=== PATIENT | male | born 1950 | race Caucasian/White ===

== ENCOUNTER → 2018-03-15 07:45 | Outpatient (CLI) | payer MEDICARE, OTHER, SELFPAY ==
[2018-03-15 09:02] LABS: Add Manual Diff / Slide Review NO; Basophils Percent Auto 0.3 % (0-2); Eosinophils Percent Auto 2.5 % (2-4); Hematocrit 45.2 % (41-53); Hemoglobin 15.5 g/dL (13.5-17.5); Lymphocytes Percent Auto 26.4 % (25-40); Mean Corpuscular HGB Conc 34.4 % (30-36); Mean Corpuscular Hemoglobin 30.5 PG (26-34); Mean Corpuscular Volume 88.8 fL (80-100); Monocytes Percent Auto 9.1 % (3-14); Neutrophils Absolute Auto 4200 /uL (3000-5900); Neutrophils Percent Auto 61.7 % (50-75); Platelet Count 160 X10^3/uL (150-400); Red Blood Cell Count 5.09 X10^6/uL (4.5-5.9); Red Cell Distribution Width 13.4 % (11.6-14.8); White Blood Cell Count 6.7 X10^3/uL (4.5-11.0)
[2018-03-15 09:14] LABS: Alanine Aminotransferase 23 IU/L (21-72); Albumin Globulin Ratio 1.3 (1.0-2.8); Alkaline Phosphatase 60 U/L (38-126); Aspartate Aminotransferase 19 IU/L (17-59); Bilirubin Total 0.9 mg/dL (0.2-1.3); Calcium 8.7 mg/dL (8.4-10.2); Cholesterol 191 mg/dL (140-199); Estimated Glomerular Filt Rate > 60.0 mL/min (>60); Glucose 102 mg/dL (80-110); HDL Cholesterol 46 mg/dL (40-60); HEMOLYSIS < 15 (0-50); LDL Cholesterol Calculated 124 mg/dL (<100); Potassium 4.3 mmol/L (3.4-5.1); Sodium 141 mmol/L (137-145); Triglycerides 104 mg/dL (35-150)
[2018-03-15 09:40] LABS: Thyroid Stimulating Hormone 0.99 uIU/mL (0.47-4.68)
== END ==
PROVIDERS: PCP Family Medicine; Visit Provider Urology
DX: E78.5 Hyperlipidemia, unspecified (principal); C61 Malignant neoplasm of prostate
CPT/HCPCS: 36415; 80053; 80061; 84153; 84443; 85025; G0103

== ENCOUNTER → 2018-04-09 07:48 | Outpatient (CLI) | payer MEDICARE, OTHER, SELFPAY | PROVIDERS: PCP Family Medicine; Visit Provider Urology | DX: C61 Malignant neoplasm of prostate (principal) | CPT/HCPCS: 36415; 84153 ==

== ENCOUNTER → 2019-02-12 12:40 | Outpatient (CLI) | payer MEDICARE, OTHER, SELFPAY | PROVIDERS: PCP Family Medicine; Visit Provider Radiology Radiation Oncology | DX: C61 Malignant neoplasm of prostate (principal) | CPT/HCPCS: 36415; 84153 ==

== ENCOUNTER → 2019-02-19 13:21 | Outpatient (CLI) | payer MEDICARE, OTHER, SELFPAY ==
[2019-02-19 14:41] LABS: Prostate Specific Antigen 13.6 ng/mL (0.10-4.00)
== END ==
PROVIDERS: Family Provider Family Medicine; PCP Family Medicine; Visit Provider Radiology Radiation Oncology
DX: C61 Malignant neoplasm of prostate (principal)
CPT/HCPCS: 36415; 84153

== ENCOUNTER → 2019-07-11 07:42 | Outpatient (CLI) | payer MEDICARE, OTHER, SELFPAY ==
[2019-07-11 08:10] LABS: Add Manual Diff / Slide Review NO; Basophils Absolute Auto 0 /uL (0-100); Basophils Percent Auto 0.4 % (0-2); Eosinophils Absolute Auto 200 /uL (0-450); Eosinophils Percent Auto 3.9 % (2-4); Hematocrit 43.9 % (41-53); Hemoglobin 14.7 g/dL (13.5-17.5); Lymphocytes Absolute Auto 1400 /uL (1100-4500); Lymphocytes Percent Auto 25.7 % (25-40); Mean Corpuscular HGB Conc 33.6 % (30-36); Mean Corpuscular Hemoglobin 30.8 PG (26-34); Mean Corpuscular Volume 91.5 fL (80-100); Monocytes Absolute Auto 600 /uL (0-900); Monocytes Percent Auto 10.6 % (3-14); Neutrophils Absolute Auto 3100 /uL (1500-7000); Neutrophils Percent Auto 59.4 % (50-75); Platelet Count 168 X10^3/uL (150-400); Red Blood Cell Count 4.79 X10^6/uL (4.5-5.9); Red Cell Distribution Width 13.2 % (11.6-14.8); White Blood Cell Count 5.3 X10^3/uL (4.5-11.0)
[2019-07-11 09:23] LABS: Alanine Aminotransferase 23 IU/L (21-72); Albumin Globulin Ratio 1.5 (1.0-2.8); Alkaline Phosphatase 64 U/L (38-126); Aspartate Aminotransferase 22 IU/L (17-59); BUN Creatinine Ratio 17.3 (6-22); Bilirubin Total 0.8 mg/dL (0.2-1.3); Blood Urea Nitrogen 19 mg/dL (9-20); Calcium 9.1 mg/dL (8.4-10.2); Carbon Dioxide 28 mmol/L (22-32); Chloride 104 mmol/L (98-107); Cholesterol 177 mg/dL (140-199); Estimated Glomerular Filt Rate > 60.0 mL/min (>60); Globulin 2.6 g/dL (1.7-4.1); Glucose 101 mg/dL (80-110); HDL Cholesterol 39 mg/dL (40-60); HEMOLYSIS < 15 (0-50); LDL Cholesterol Calculated 117 mg/dL (<100); Potassium 4.4 mmol/L (3.4-5.1); Sodium 140 mmol/L (137-145); Total Protein 6.6 g/dL (6.3-8.2); Triglycerides 104 mg/dL (35-150)
[2019-07-11 09:38] LABS: Vitamin D 25 Hydroxy (D3) 33.6 ng/mL (30.0-100.0)
[2019-07-11 09:53] LABS: Prostate Specific Antigen Scrn 3.48 ng/mL (0.1-4.0); Thyroid Stimulating Hormone 1.16 uIU/mL (0.47-4.68)
== END ==
PROVIDERS: PCP Family Medicine; Visit Provider Family Medicine
DX: Z00.00 Encounter for general adult medical examination without abnormal findings (principal); I10 Essential (primary) hypertension; Z12.5 Encounter for screening for malignant neoplasm of prostate; Z13.21 Encounter for screening for nutritional disorder; Z85.46 Personal history of malignant neoplasm of prostate
CPT/HCPCS: 36415; 80053; 80061; 82306; 84443; 85025; G0103

== ENCOUNTER → 2019-08-19 12:33 | Outpatient (CLI) | payer MEDICARE, OTHER, SELFPAY ==
[2019-08-19 14:20] LABS: Prostate Specific Antigen 2.58 ng/mL (0.10-4.00)
== END ==
PROVIDERS: PCP Family Medicine; Visit Provider Radiology Radiation Oncology
DX: Z85.46 Personal history of malignant neoplasm of prostate (principal)
CPT/HCPCS: 36415; 84153

== ENCOUNTER → 2019-09-30 15:27 | Outpatient (CLI) | payer MEDICARE, OTHER, SELFPAY ==
--- NOTE | 2019-09-30 15:29 | DI.RAD.S_ITS ---
PROCEDURE: XR SHOULDER RT MIN 2V INDICATIONS: pain TECHNIQUE: 3 views of the shoulder were acquired. COMPARISON: None. FINDINGS: Bones: No fractures or dislocations. No suspicious bony lesions. Visualized ribs appear intact. Soft tissues: No suspicious soft tissue calcifications. IMPRESSION: Moderate osteoarthritis right a.c. joint. Dictated by: Aníbal Alicia M.D. on 09/30/2019 at 15:52 Approved by: Aníbal Alicia M.D. on 09/30/2019 at 15:53
== END ==
PROVIDERS: PCP Family Medicine; Visit Provider Family Medicine
DX: M25.511 Pain in right shoulder (principal); M19.011 Primary osteoarthritis, right shoulder
CPT/HCPCS: 73030

== ENCOUNTER 2019-11-14 09:58 | Day surgery (SDC) | payer MEDICARE, OTHER, SELFPAY ==
--- NOTE | 2019-11-14 | PATH_ITS ---
[facility] Accession Number: [id number] . 01 Material submitted: . rectum - RECTAL POLYP AT 18 CM . 02 Diagnosis: Rectal Polyp at 18 cm: Hyperplastic polyp. MRV 11/17/2019 0950 Local . 02 Electronically signed: . Luann Anderson MD, Pathologist NPI- [id number] . 01 Gross description: . RECTAL POLYP AT 18 CM: Received in formalin is 1 fragment(s) of linton, soft tissue measuring 0.1 x 0.1 x 0.1 cm submitted entirely in 1 cassette(s) /[facility] 11/14/20192048 Local . 02 Pathologist provided ICD-10: Z12.11, K63.5 . 02 CPT . 668790 Performed at: 01 [facility] [address] [facility], [place], [place] [id number] MD Juan Pablo Horowitz MD Phone: [phone] Performed at: 02 [facility] [address] [place], [place] [id number] MD Doris Bhat MD Phone: [phone]
[2019-11-14] MEDS: SODIUM CHLORIDE 0.9% 1,000 ML 200 ML IV (10:14)
[2019-11-14 10:15] VITALS: BP 106/85; PULSE 108; RESP 16; TEMP 36.7; O2SAT 96; BMI 27.3
--- NOTE | 2019-11-14 10:56 | PM.HP.1 ---
History of Present Illness History of Present Illness Date Patient Seen: 11/14/19 Time Patient Seen: 10:56 Chief complaint: [id number] Narrative: This is a 69-year-old man with recent diagnosis of prostate cancer, who is 7 years out from his last screening colonoscopy. He had polyps found on a colonoscopy, he was recommended to have a follow-up colonoscopy in 5 years. He denies any hematochezia, melena, unexplained abdominal pain, unexplained weight loss. He has no family history of colon polyps or colon cancers. He says he feels well and in good health. ROS: Thirteen system review is otherwise negative other than as mentioned below and in HPI. PE: GENERAL: Well groomed and cooperative. Appears stated age. Answers questions promptly and appropriately. Vital signs noted. HENT: Normocephalic, atraumatic. Hearing intact. Oral mucosa is pink and moist. EYES: Conjunctiva pink, sclera white, no periorbital swelling. CARDIOVASCULAR: Regular rate. No pedal edema. RESPIRATORY: Non-tachypneic, breathing comfortably on room air. GASTROINTESTINAL: Abdomen soft and non-distended GENITALURINARY: No flank tenderness. MUSCULOSKELETAL: Equal tone and mass bilaterally. SKIN: Warm, dry, soft, appropriate color for ethnicity. No other lesions, rashes, or wounds. NEURO: Alert and Oriented X 3. No gross sensory deficits, or cognitive issues. PSYCH: Appropriate affect and mood. Patient History Medical History Chicken pox (Resolved ~1956) Surgical History Anesthesia (Resolved) Status post hernia repair (~1968) Surgical procedure planned (Resolved ~1989) Family & Social History Family History Brother Age: 69 Leukemia Father Mesothelioma Social History: household members spouse Tobacco & Substance use: Smoking Status Never smoker alcohol intake current alcohol intake frequency a few times a week Substance Use Type does not use Meds Home Medications and Allergies Home Medications Medication Instructions Recorded Confirmed Type Diphenhydramine Hydrochloride 1 cap PO PRN #0 07/17/12 11/14/19 History (BENADRYL) aspirin 81 mg PO QDAY #0 07/09/13 11/14/19 History epinephrine 0.3 mg IM SEE INSTRUCTIONS #1 kit 02/27/17 11/14/19 Rx lisinopril 10 mg tablet 10 mg PO DAILY #90 tab 07/17/19 11/14/19 Rx lovastatin 40 mg tablet 40 mg PO HS #90 tab 07/17/19 11/14/19 Rx albuterol sulfate 90 mcg/actuation 2 puff INHALATION Q4HP PRN #2 each 09/01/19 11/14/19 Rx aerosol inhaler Allergies Allergy/AdvReac Type Severity Reaction Status Date / Time erythromycin base Allergy Mild Verified 11/14/19 10:26 Exam Vital Signs (past 8 hours): - 11/14/19 10:15 Temperature 98.0 F Pulse Rate 108 H Respiratory Rate 16 Blood Pressure 106/85 Pulse Oximetry 96 Oxygen Delivery Method Room Air Assessment & Plan Assessment and plan (1) Personal history of colonic polyps: Problem details: Risks and benefits of screening colonoscopy and polypectomy were discussed with the patient who desires to proceed with his colonoscopy procedure. Specific risks of bleeding, perforation, need for additional procedures were discussed. Current visit: Yes Status: Acute Quality VTE Deep Vein Thrombosis/Pulmonary Embolism Present on Admission: No
[2019-11-14] MEDS: fentaNYL 250 MCG/5 ML INJ IV (11:28)
[2019-11-14] MEDS: MIDAZOLAM 5 MG/5 ML VIAL IV (11:28)
--- NOTE | 2019-11-14 11:28 | PM.OP.ENDO ---
Operative Date/Time/Diagnoses Date of procedure: 11/14/19 Time of procedure: 11:28 Pre-op diagnosis: Personal history of colon polyps Post-op diagnosis: same (Colon polyps) Procedure & Clinicians Study performed: Surveillance colonoscopy, polypectomy with cold forceps x1 Same procedure as scheduled: Yes Indications: Personal history of colon polyps Surgeon: Tracy Dietrich Procedure Notes SCOAP/Timeout: Performed Procedure in detail: The patient was brought to the room and placed in left lateral decubitus position with all bony prominences padded. A time-out was performed and then the patient was given procedural sedation starting with 3 mg of Versed and [100] mcg of fentanyl. Vitals were monitored throughout the procedure and remained stable. Once adequately sedated the procedure was begun. A rectal exam was performed revealing [no abnormalities]. The colonoscope was then introduced to the rectum and advanced to the cecum in the usual fashion. []The cecum was identified by the appendiceal orifice, the mucosal tri-fold, and the ileocecal valve. The scope was then retracted while rotating side to side and examining each mucosal fold. [A 3 mm polyp was found in the rectum at 18 cm, and was completely removed with cold forceps.] At the conclusion of the procedure retroflexion was performed and [small grade 1-2 internal hemorrhoids without stigmata of bleeding were seen]. The scope was then withdrawn from the rectum the procedure was concluded. The patient tolerated the procedure well and was transferred to the PACU in stable condition. Scope withdrawal time: 15 Sedation minutes: 24 Findings: polyp Specimen(s): other (Flat polyp from 18 cm) Complications: none Impression: Normal colon, with 1 polyp Post-procedure Recommendations: Colonscopy in 5 years (Due to personal history of tubular adenoma colon polyps, and new polyp found on this exam) Follow up: as needed Disposition: PACU
[2019-11-14 11:30] VITALS: BP 134/80; PULSE 88; RESP 16; O2SAT 99
[2019-11-14 11:35] VITALS: BP 105/68; PULSE 90; RESP 23; TEMP 36.7; O2SAT 98
[2019-11-14 11:43] VITALS: BP 117/76; BP 119/76; PULSE 75; RESP 13; O2SAT 96
[2019-11-14 12:08] VITALS: BP 130/70; PULSE 70; RESP 14; TEMP 36.8; O2SAT 97
== END 2019-11-14 12:10 | disposition home or self-care (01) ==
PROVIDERS: PCP Family Medicine; Visit Provider Surgery
PROC: 0DJD8ZZ Inspection of Lower Intestinal Tract, Via Natural or Artificial Opening Endoscopic (ICD-10-PCS; CPT 45378; principal; 2019-11-14 10:45)
DX: Z12.11 Encounter for screening for malignant neoplasm of colon (principal); Z86.010 Personal history of colon polyps; K57.30 Diverticulosis of large intestine without perforation or abscess without bleeding; K64.0 First degree hemorrhoids; K63.5 Polyp of colon
CPT/HCPCS: 45380; 99152; J2250; J3010

== ENCOUNTER → 2019-12-11 09:47 | Outpatient (CLI) | payer MEDICARE, OTHER, SELFPAY | PROVIDERS: PCP Family Medicine; Referring Provider Orthopaedic Surgery; Visit Provider Orthopaedic Surgery | DX: S46.001A Unspecified injury of muscle(s) and tendon(s) of the rotator cuff of right shoulder, initial encounter (principal); Z53.9 Procedure and treatment not carried out, unspecified reason ==

== ENCOUNTER → 2020-02-13 10:25 | Outpatient (CLI) | payer MEDICARE, OTHER, SELFPAY ==
[2020-02-13 13:15] LABS: Prostate Specific Antigen 0.838 ng/mL (0.10-4.00)
== END ==
PROVIDERS: PCP Family Medicine; Referring Provider Radiology Radiation Oncology; Visit Provider Radiology Radiation Oncology
DX: C61 Malignant neoplasm of prostate (principal)
CPT/HCPCS: 36415; 84153

== ENCOUNTER 2020-02-24 14:38 | Emergency (ER) | payer MEDICARE, OTHER, SELFPAY ==
[2020-02-24 14:47] VITALS: BP 155/83; PULSE 110; RESP 16; TEMP 36.5; O2SAT 97; BMI 26.6
--- NOTE | 2020-02-24 14:59 | ED_ITS ---
HPI - Allergic Reaction <DAVIE HensonBC - Last Filed: 02/24/20 16:48> General Chief complaint: Allergic Reaction Stated complaint: allergic reaction Time Seen by Provider: 02/24/20 14:47 Source: patient and family Mode of arrival: Ambulatory Limitations: no limitations History of Present Illness HPI narrative: the patient is a 69-year-old male nonsmoker with history of hypertension who presents with a chief complaint of an allergic reaction. He states he started having swelling around bilateral eyes approximately 90 minutes ago when he was cleaning out old planters. He states that he has had allergic reactions while cleaning out planters and working outside. He states that he took 50 mg of p.o. Benadryl approximately 90 minutes when it started. He does have an EpiPen, but he did not take it this time because he has no respiratory involvement. He denies any swelling of lips face or tongue or difficulty breathing. He states he did use an albuterol inhaler just in case. He denies any wheezing, difficulty breathing and states that other than the swelling around his eyes he feels fine. 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 Related Data Home Medications Medication Instructions Recorded Confirmed Diphenhydramine Hydrochloride 1 cap PO PRN #0 07/17/12 11/14/19 (BENADRYL) aspirin 81 mg PO QDAY #0 07/09/13 11/14/19 Previous Rx's Medication Instructions Recorded epinephrine 0.3 mg IM SEE INSTRUCTIONS #1 kit 02/27/17 lisinopril 10 mg tablet 10 mg PO DAILY #90 tab 07/17/19 lovastatin 40 mg tablet 40 mg PO HS #90 tab 07/17/19 albuterol sulfate 90 mcg/actuation 2 puff INHALATION Q4HP PRN #2 each 09/01/19 aerosol inhaler prednisone 40 mg PO DAILY 5 Days #10 tab 02/24/20 Allergies Allergy/AdvReac Type Severity Reaction Status Date / Time erythromycin base Allergy Mild Verified 11/14/19 10:26 Review of Systems <JAE Henson - Last Filed: 02/24/20 16:48> Review of Systems Narrative: GENERAL: Denies chills, fatigue, malaise, fever, sweats. HEENT: see HPI RESPIRATORY: Denies dyspnea, cough, wheezing, hemoptysis, sputum. CARDIOVASCULAR: Denies chest pain, palpitations, orthopnea, edema, GASTROINTESTINAL: Denies nausea, vomiting, abdominal pain, diarrhea, constipation, melena. : Denies dysuria, frequency, incontinence, hematuria, urinary retention. MUSCULOSKELETAL: denies weakness, joint pain, or bony pain SKIN: see HPI NEUROLOGIC: Denies weakness, headache, numbness, change in speech, confusion, seizures, incoordination. PSYCHIATRIC: No concerning psychosocial issues. 12 point review of systems is negative except for those stated above Patient History <Shasha SULEMAN Alvarez-BC - Last Filed: 02/24/20 16:48> Social History household members: spouse Smoking Status: Never smoker alcohol intake: current Smoking Status: Never smoker alcohol intake frequency: a few times a week Substance Use Type: does not use Exam <SULEMAN Henson-BC - Last Filed: 02/24/20 16:48> Narrative Exam Narrative: GENERAL: This is a well-nourished, well-developed patient, in no acute distress HEAD: Atraumatic. Normocephalic. No temporal or scalp tenderness. EYES: Pupils equal round and reactive. Extraocular motions intact. No scleral icterus. No injection or drainage. slight periorbital swelling noted bilaterally, left side greater than right. ENT: Nose without bleeding, purulent drainage or septal hematoma. Throat without erythema, tonsillar hypertrophy or exudate. Uvula midline. Airway patent. no oropharyngeal swelling. Moist mucous membranes noted NECK: Trachea midline. No JVD or lymphadenopathy. Supple, nontender, no meningeal signs. CARDIOVASCULAR: Regular rate and rhythm RESPIRATORY: Clear to auscultation. Breath sounds equal bilaterally. No wheezes, rales, or rhonchi. No cough. No increased respiratory effort. No accessory muscle use. GASTROINTESTINAL: Abdomen soft, non-tender, nondistended. No hepato- splenomegaly, or palpable masses. No guarding. EXTREMITIES: No clubbing, cyanosis, or edema. No joint tenderness, effusion, or edema noted. BACK: Nontender without deformity or crepitance. No flank tenderness. NEURO: AOx3. SKIN: No rash On visible skin. No evidence of hives. Slight erythema over area of periorbital swelling. Initial Vital Signs Initial Vital Signs: Vital Signs Temperature 97.7 F 04/28/20 14:47 Pulse Rate 110 H 02/24/20 14:47 Respiratory Rate 16 02/24/20 14:47 Blood Pressure 155/83 H 02/24/20 14:47 Pulse Oximetry 97 02/24/20 14:47 <Gabriela Fonseca MD - Last Filed: 02/24/20 17:29> Initial Vital Signs Initial Vital Signs: Vital Signs Temperature 97.7 F 02/24/20 14:47 Pulse Rate 110 H 02/24/20 14:47 Respiratory Rate 16 02/24/20 14:47 Blood Pressure 155/83 H 02/24/20 14:47 Pulse Oximetry 97 02/24/20 14:47 Scores <JAE Henson - Last Filed: 02/24/20 16:48> GCS Tamika coma scale eye opening: Spontaneous Tamika coma scale verbal response: Orientated [place] coma scale motor response: Obey commands Tamika coma scale total score: 15 Course <JAE Henson - Last Filed: 02/24/20 16:48> Orders Ordered: Discontinued Medications Famotidine (Pepcid) 20 mg in 50 mls @ 200 mls/hr IV NOW ONE Stop: 02/24/20 15:11 Last Infusion: 02/24/20 15:59 Dose: 0 mls/hr Documented by: Admin: 02/24/20 15:37 Dose: 200 mls/hr Documented by: ANJU Methylprednisolone (Solu-Medrol 125 Mg Vial) 125 mg IV NOW ONE Stop: 02/24/20 14:58 Last Admin: 02/24/20 15:36 Dose: 125 mg Documented by: ANJU Reevaluation(s) Reevaluation #1: the patient states that he is feeling better and that the swelling is decreasing around his eyes. States that he would like prescriptions to go to [facility]. Still no respiratory involvement. Time: 16:03 Vital Signs Vital signs: Vital Signs - 8 hr 02/24/20 14:47 02/24/20 16:43 Temperature 97.7 F Pulse Rate 110 H 90 Respiratory Rate 16 16 Blood Pressure 155/83 H 155/83 H Pulse Oximetry 97 97 <Gabriela Fonseca MD - Last Filed: 02/24/20 17:29> Orders Ordered: Discontinued Medications Famotidine (Pepcid) 20 mg in 50 mls @ 200 mls/hr IV NOW ONE Stop: 02/24/20 15:11 Last Infusion: 02/24/20 15:59 Dose: 0 mls/hr Documented by: Admin: 02/24/20 15:37 Dose: 200 mls/hr Documented by: ANJU Methylprednisolone (Solu-Medrol 125 Mg Vial) 125 mg IV NOW ONE Stop: 02/24/20 14:58 Last Admin: 02/24/20 15:36 Dose: 125 mg Documented by: ANJU Vital Signs Vital signs: Vital Signs - 8 hr 02/24/20 14:47 02/24/20 16:43 Temperature 97.7 F Pulse Rate 110 H 90 Respiratory Rate 16 16 Blood Pressure 155/83 H 155/83 H Pulse Oximetry 97 97 MDM - Allergic Reaction <SULEMAN Henson-BC - Last Filed: 02/24/20 16:48> MDM Narrative Medical decision making narrative: The patient is a 69-year-old male who presents with a chief complaint of an allergic reaction after cleaning out plantar boxes. This is consistent with previous allergic reactions to the patient. He does not have any respiratory symptoms, has no pharyngeal swelling or difficulty breathing. Thus he did not get epinephrine. He already took 50 p.o. Benadryl, he was given IV Solu-Medrol as well as Pepcid. He felt much better after the improved therapies, was hemodynamically stable no respiratory involvement during his emergency department stay. He requested to go home, which I am okay with. Discussed at length strict return precautions of any oropharyngeal swelling, shortness of breath etcetera. Discussed steroid burst. Encourage PCP follow-up. Patient and have no questions or concerns upon discharge and state understanding of return precautions as well as follow-up care. Discharge Plan Departure Patient Disposition: Home Clinical Impression: Allergic reaction Qualifiers: Encounter type: initial encounter Qualified Code(s): T78.40XA - Allergy, unspecified, initial encounter Discharge Date/Time: 02/24/20 16:43 Instructions: DI for General Allergic Reactions Activity Restrictions/Additional Instructions: Thank you for trusting us with your care today I am sorry that you had this reaction and hope that you feel better quickly. I sent a prescription of prednisone to [facility]. You can start this prescription tomorrow as you had IV steroids in the emergency department. Please take in the morning, as I discussed it can make you hungry emotional etcetera you can also continue Benadryl as needed and Pepcid daily. please follow-up with primary care provider in the next few days. As discussed, please come back to the emergency department for any acute concerns such as shortness of breath etcetera Prescriptions: New prednisone 20 mg tablet 40 mg PO DAILY 5 Days Qty: 10 RF: 0 No Action Diphenhydramine Hydrochloride (BENADRYL) 1 cap PO PRN Qty: 0 RF: 0 aspirin 81 MG tablet,delayed release (DR/EC) 81 mg PO QDAY Qty: 0 RF: 0 epinephrine 0.3 MG/0.3 ML auto-injector 0.3 mg IM SEE INSTRUCTIONS Qty: 1 RF: 0 albuterol sulfate [Proventil HFA] 90 mcg/actuation HFA aerosol inhaler 2 puff inhalation Q4HP PRN (Reason: shortness of breath or wheezing) Qty: 2 RF: 2 lisinopril 10 mg tablet 10 mg PO DAILY Qty: 90 RF: 3 lovastatin 40 mg tablet 40 mg PO HS Qty: 90 RF: 3 Referrals: Alfonso Howell MD [Primary Care Provider] - <Gabriela Fonseca MD - Last Filed: 02/24/20 17:29> [facility] I was immediately available in the department for consultation throughout this patient's visit. I agree with documentation as above. Gabriela Fonseca MD
[2020-02-24] MEDS: methylPREDNISolone 125 MG/2 ML VIAL IV (15:36)
[2020-02-24] MEDS: FAMOTIDINE 20 MG/50 ML PIGGYBACK 200 MG IV (15:37)
[2020-02-24 16:43] VITALS: BP 155/83; PULSE 90; RESP 16; O2SAT 97
== END 2020-02-24 16:43 | disposition home or self-care (01) ==
PROVIDERS: Emergency Provider Nurse Practitioner Family; PCP Family Medicine
DX: T78.40XA Allergy, unspecified, initial encounter (principal)
CPT/HCPCS: 36415; 96365; 96375; 99284; J2930

== ENCOUNTER → 2020-07-14 07:36 | Outpatient (CLI) | payer MEDICARE, OTHER, SELFPAY ==
[2020-07-14 08:34] LABS: Hematocrit 43.9 % (41-53); Hemoglobin 14.6 g/dL (13.5-17.5); Mean Corpuscular HGB Conc 33.3 % (30-36); Mean Corpuscular Hemoglobin 30.8 PG (26-34); Mean Corpuscular Volume 92.2 fL (80-100); Platelet Count 192 X10^3/uL (150-400); Red Blood Cell Count 4.76 X10^6/uL (4.5-5.9); Red Cell Distribution Width 13.5 % (11.6-14.8); White Blood Cell Count 5.8 X10^3/uL (4.5-11.0)
[2020-07-14 08:57] LABS: HEMOLYSIS < 15 (0-50)
[2020-07-14 09:13] LABS: Alanine Aminotransferase 19 IU/L (<50); Albumin Globulin Ratio 1.5 (1.0-2.8); Alkaline Phosphatase 64 U/L (38-126); Aspartate Aminotransferase 23 IU/L (17-59); BUN Creatinine Ratio 18.1 (6-22); Bilirubin Total 0.8 mg/dL (0.2-1.3); Blood Urea Nitrogen 19 mg/dL (9-20); Calcium 9.2 mg/dL (8.4-10.2); Carbon Dioxide 29 mmol/L (22-32); Chloride 103 mmol/L (98-107); Cholesterol 174 mg/dL (140-199); Estimated Glomerular Filt Rate > 60.0 mL/min (>60); Globulin 2.7 g/dL (1.7-4.1); Glucose 103 mg/dL (80-110); HDL Cholesterol 40 mg/dL (40-60); LDL Cholesterol Calculated 111 mg/dL (<100); Potassium 5.2 mmol/L (3.4-5.1); Sodium 141 mmol/L (137-145); Total Protein 6.7 g/dL (6.3-8.2); Triglycerides 114 mg/dL (35-150)
[2020-07-14 14:27] LABS: Neutrophils Absolute Manual 4060 /uL (3000-5900); RBC Morphology Normal Morphology; Total Cells Counted 100
== END ==
PROVIDERS: PCP Family Medicine; Referring Provider Family Medicine; Visit Provider Family Medicine
DX: C61 Malignant neoplasm of prostate (principal); E78.2 Mixed hyperlipidemia; I10 Essential (primary) hypertension
CPT/HCPCS: 36415; 80053; 80061; 84153; 85025

== ENCOUNTER → 2021-01-31 13:49 | Outpatient (CLI) | payer MEDICARE, OTHER, SELFPAY ==
[2021-01-31 15:11] LABS: Prostate Specific Antigen 0.233 ng/mL (0.10-4.00)
== END ==
PROVIDERS: PCP Family Medicine; Referring Provider Radiology Radiation Oncology; Visit Provider Radiology Radiation Oncology
DX: C61 Malignant neoplasm of prostate (principal)
CPT/HCPCS: 36415; 84153

== ENCOUNTER → 2021-08-04 07:43 | Outpatient (CLI) | payer MEDICARE, OTHER, SELFPAY ==
[2021-08-04 08:14] LABS: Add Manual Diff / Slide Review NO; Basophils Absolute Auto 0 /uL (0-100); Basophils Percent Auto 0.5 % (0-2); Eosinophils Absolute Auto 200 /uL (0-450); Eosinophils Percent Auto 3.7 % (2-4); Hematocrit 41.6 % (41-53); Hemoglobin 13.7 g/dL (13.5-17.5); Lymphocytes Absolute Auto 1300 /uL (1100-4500); Lymphocytes Percent Auto 23.4 % (25-40); Mean Corpuscular Hemoglobin 30.4 PG (26-34); Mean Corpuscular Volume 91.9 fL (80-100); Monocytes Absolute Auto 600 /uL (0-900); Monocytes Percent Auto 11.3 % (3-14); Neutrophils Absolute Auto 3500 /uL (1500-7000); Neutrophils Percent Auto 61.1 % (50-75); Platelet Count 174 X10^3/uL (150-400); Red Blood Cell Count 4.53 X10^6/uL (4.5-5.9); Red Cell Distribution Width 13.3 % (11.6-14.8); White Blood Cell Count 5.7 X10^3/uL (4.5-11.0)
[2021-08-04 08:49] LABS: Creatinine Urine Random 199.2 mg/dL
[2021-08-04 08:52] LABS: Microalbumin Urine Random 2.2 mg/dL (0-1.6)
[2021-08-04 08:56] LABS: Alanine Aminotransferase 19 IU/L (<50); Albumin 3.9 g/dL (3.5-5.0); Albumin Globulin Ratio 1.6 (1.0-2.8); Alkaline Phosphatase 58 U/L (38-126); Aspartate Aminotransferase 23 IU/L (17-59); BUN Creatinine Ratio 24.5 (6-22); Bilirubin Total 0.4 mg/dL (0.2-1.3); Blood Urea Nitrogen 24 mg/dL (9-20); Calcium 9.1 mg/dL (8.4-10.2); Carbon Dioxide 30 mmol/L (22-32); Chloride 107 mmol/L (98-107); Cholesterol 172 mg/dL (140-199); Estimated Glomerular Filt Rate > 60.0 mL/min (>60); Globulin 2.5 g/dL (1.7-4.1); Glucose 120 mg/dL (80-110); HDL Cholesterol 41 mg/dL (40-60); HEMOLYSIS < 15 (0-50); LDL Cholesterol Calculated 114 mg/dL (<100); Potassium 4.3 mmol/L (3.4-5.1); Sodium 140 mmol/L (137-145); Total Protein 6.4 g/dL (6.3-8.2); Triglycerides 84 mg/dL (35-150)
[2021-08-04 09:22] LABS: Prostate Specific Antigen Scrn 0.245 ng/mL (0.1-4.0)
== END ==
PROVIDERS: PCP Family Medicine; Referring Provider Family Medicine; Visit Provider Family Medicine
DX: C61 Malignant neoplasm of prostate (principal); E78.2 Mixed hyperlipidemia; Z12.5 Encounter for screening for malignant neoplasm of prostate; I10 Essential (primary) hypertension
CPT/HCPCS: 36415; 80053; 80061; 82043; 82570; 85025; G0103

== ENCOUNTER → 2021-09-09 12:12 | Outpatient (CLI) | payer MEDICARE, OTHER, SELFPAY ==
[2021-09-09] MEDS: COVID-19 VACC #3, MRNA(MOD) 50 MCG/0.25 ML VIAL IM (12:18)
== END ==
PROVIDERS: PCP Family Medicine; Visit Provider Internal Medicine
DX: Z23 Encounter for immunization (principal)
CPT/HCPCS: 0013A; 91301

== ENCOUNTER → 2022-08-09 08:47 | Outpatient (CLI) | payer MEDICARE, OTHER, SELFPAY ==
[2022-08-09 09:58] LABS: Hemoglobin A1C% w Est Avg Glu 5.6 % (4.0-6.0)
[2022-08-09 10:17] LABS: Alanine Aminotransferase 21 IU/L (<50); Albumin Globulin Ratio 1.3 (1.0-2.8); Alkaline Phosphatase 69 U/L (38-126); Aspartate Aminotransferase 23 IU/L (17-59); Bilirubin Total 0.9 mg/dL (0.2-1.3); Blood Urea Nitrogen 20 mg/dL (9-20); Calcium 8.9 mg/dL (8.4-10.2); Carbon Dioxide 29 mmol/L (22-32); Chloride 104 mmol/L (98-107); Estimated Glomerular Filt Rate > 60 mL/min (>60); Glucose 101 mg/dL (80-110); HEMOLYSIS < 15 (0-50); Potassium 4.5 mmol/L (3.4-5.1); Sodium 140 mmol/L (137-145)
== END ==
PROVIDERS: PCP Family Medicine; Referring Provider Family Medicine; Visit Provider Family Medicine
DX: E78.2 Mixed hyperlipidemia (principal); I10 Essential (primary) hypertension; Z86.39 Personal history of other endocrine, nutritional and metabolic disease
CPT/HCPCS: 80053; 83036

== ENCOUNTER → 2022-08-14 13:33 | Outpatient (CLI) | payer MEDICARE, OTHER, SELFPAY ==
[2022-08-14 14:26] LABS: Add Manual Diff / Slide Review NO; Basophils Absolute Auto 0 /uL (0-100); Basophils Percent Auto 0.5 % (0-2); Eosinophils Absolute Auto 200 /uL (0-450); Eosinophils Percent Auto 2.8 % (2-4); Hematocrit 42.3 % (41-53); Hemoglobin 14.1 g/dL (13.5-17.5); Lymphocytes Absolute Auto 1300 /uL (1100-4500); Mean Corpuscular HGB Conc 33.4 % (30-36); Mean Corpuscular Hemoglobin 30.4 PG (26-34); Mean Corpuscular Volume 91.1 fL (80-100); Monocytes Absolute Auto 500 /uL (0-900); Monocytes Percent Auto 8.7 % (3-14); Neutrophils Absolute Auto 3600 /uL (1500-7000); Platelet Count 196 X10^3/uL (150-400); Red Blood Cell Count 4.64 X10^6/uL (4.5-5.9); Red Cell Distribution Width 13.5 % (11.6-14.8); White Blood Cell Count 5.5 X10^3/uL (4.5-11.0)
[2022-08-14 14:41] LABS: Cholesterol 177 mg/dL (140-199); HDL Cholesterol 38 mg/dL (40-60); LDL Cholesterol Calculated 108 mg/dL (<100); Triglycerides 153 mg/dL (35-150)
[2022-08-14 15:12] LABS: Prostate Specific Antigen 0.187 ng/mL (0.10-4.00)
[2022-08-14 18:01] LABS: Microalbumi Creatinin Ratio Ur 11.1 ug/mg CR (<30); Microalbumin Urine Random 1.5 mg/dL (0-1.6)
== END ==
PROVIDERS: PCP Family Medicine; Referring Provider Family Medicine; Visit Provider Family Medicine
DX: C61 Malignant neoplasm of prostate (principal); I10 Essential (primary) hypertension; E78.2 Mixed hyperlipidemia; Z12.5 Encounter for screening for malignant neoplasm of prostate
CPT/HCPCS: 36415; 80061; 82043; 82570; 84153; 85025

== ENCOUNTER → 2023-08-16 08:36 | Outpatient (CLI) | payer MEDICARE, SELFPAY ==
[2023-08-16 09:25] LABS: Add Manual Diff / Slide Review NO; Basophils Absolute Auto 0 /uL (0-100); Basophils Percent Auto 0.7 % (0-2); Eosinophils Absolute Auto 300 /uL (0-450); Eosinophils Percent Auto 6.3 % (2-4); Hematocrit 40.8 % (41-53); Hemoglobin 13.9 g/dL (13.5-17.5); Lymphocytes Absolute Auto 1600 /uL (1100-4500); Lymphocytes Percent Auto 29.5 % (25-40); Monocytes Absolute Auto 500 /uL (0-900); Monocytes Percent Auto 9.9 % (3-14); Neutrophils Absolute Auto 3000 /uL (1500-7000); Neutrophils Percent Auto 53.6 % (50-75); Platelet Count 178 X10^3/uL (150-400); Red Blood Cell Count 4.48 X10^6/uL (4.5-5.9); Red Cell Distribution Width 13.2 % (11.6-14.8); White Blood Cell Count 5.5 X10^3/uL (4.5-11.0)
[2023-08-16 09:39] LABS: Hemoglobin A1C% w Est Avg Glu 5.9 % (4.0-6.0)
[2023-08-16 09:41] LABS: Alanine Aminotransferase 21 IU/L (<50); Albumin 3.9 g/dL (3.5-5.0); Albumin Globulin Ratio 1.3 (1.0-2.8); Alkaline Phosphatase 64 U/L (38-126); Aspartate Aminotransferase 25 IU/L (17-59); BUN Creatinine Ratio 17.7 (6-22); Bilirubin Total 0.4 mg/dL (0.2-1.3); Blood Urea Nitrogen 20 mg/dL (9-20); Calcium 9.1 mg/dL (8.4-10.2); Carbon Dioxide 28 mmol/L (22-32); Chloride 104 mmol/L (98-107); Cholesterol 177 mg/dL (140-199); Estimated Glomerular Filt Rate > 60 mL/min (>60); Globulin 2.9 g/dL (1.7-4.1); Glucose 101 mg/dL (80-110); HDL Cholesterol 34 mg/dL (40-60); HEMOLYSIS < 15 (0-50); LDL Cholesterol Calculated 122 mg/dL (<100); Potassium 4.2 mmol/L (3.4-5.1); Sodium 138 mmol/L (137-145); Total Protein 6.8 g/dL (6.3-8.2); Triglycerides 104 mg/dL (35-150)
[2023-08-16 10:10] LABS: Prostate Specific Antigen Scrn 0.309 ng/mL (0.1-4.0)
[2023-08-16 10:16] LABS: TSH w/ Reflex to FT4 1.19 uIU/mL (0.47-4.68)
[2023-08-16 13:24] LABS: Microalbumin Urine Random 2.8 mg/dL (0-1.6)
[2023-08-16 13:53] LABS: Creatinine Urine Random 234.5 mg/dL; Microalbumi Creatinin Ratio Ur 11.9 ug/mg CR (<30)
== END ==
PROVIDERS: PCP Family Medicine; Referring Provider Family Medicine; Visit Provider Family Medicine
DX: I10 Essential (primary) hypertension (principal); R73.9 Hyperglycemia, unspecified; Z12.5 Encounter for screening for malignant neoplasm of prostate; C61 Malignant neoplasm of prostate; E78.2 Mixed hyperlipidemia; K57.90 Diverticulosis of intestine, part unspecified, without perforation or abscess without bleeding
CPT/HCPCS: 36415; 80053; 80061; 82043; 82570; 83036; 84443; 85025; G0103

== ENCOUNTER → 2024-09-24 09:11 | Outpatient (CLI) | payer MEDICARE, SELFPAY ==
[2024-09-24 09:59] LABS: Add Manual Diff / Slide Review NO; Basophils Absolute Auto 0 /uL (0-100); Basophils Percent Auto 0.5 % (0-2); Eosinophils Absolute Auto 200 /uL (0-450); Eosinophils Percent Auto 4.3 % (2-4); Hematocrit 38.4 % (41-53); Hemoglobin 12.8 g/dL (13.5-17.5); Lymphocytes Absolute Auto 1800 /uL (1100-4500); Lymphocytes Percent Auto 37.4 % (25-40); Mean Corpuscular HGB Conc 33.4 % (30-36); Mean Corpuscular Hemoglobin 29.8 PG (26-34); Mean Corpuscular Volume 89.2 fL (80-100); Monocytes Absolute Auto 500 /uL (0-900); Monocytes Percent Auto 9.7 % (3-14); Neutrophils Absolute Auto 2300 /uL (1500-7000); Neutrophils Percent Auto 48.1 % (50-75); Platelet Count 194 X10^3/uL (150-400); Red Cell Distribution Width 14.6 % (11.6-14.8); White Blood Cell Count 4.8 X10^3/uL (4.5-11.0)
[2024-09-24 10:25] LABS: Alanine Aminotransferase 29 IU/L (<50); Albumin 3.9 g/dL (3.5-5.0); Albumin Globulin Ratio 1.4 (1.0-2.8); Alkaline Phosphatase 76 U/L (38-126); Aspartate Aminotransferase 30 IU/L (17-59); BUN Creatinine Ratio 18.4 (6-22); Bilirubin Total 0.5 mg/dL (0.2-1.3); Blood Urea Nitrogen 21 mg/dL (9-20); Carbon Dioxide 28 mmol/L (22-32); Chloride 106 mmol/L (98-107); Cholesterol 150 mg/dL (140-199); Estimated Glomerular Filt Rate > 60 mL/min (>60); Globulin 2.8 g/dL (1.7-4.1); Glucose 103 mg/dL (80-110); HDL Cholesterol 37 mg/dL (40-60); HEMOLYSIS < 15 (0-50); LDL Cholesterol Calculated 95 mg/dL (<100); Potassium 4.9 mmol/L (3.4-5.1); Sodium 140 mmol/L (137-145); Total Protein 6.7 g/dL (6.3-8.2); Triglycerides 92 mg/dL (35-150)
[2024-09-24 10:51] LABS: Creatinine Urine Random 187.24 mg/dL
[2024-09-24 10:52] LABS: Prostate Specific Antigen Scrn 0.231 ng/mL (0.1-4.0)
[2024-09-24 10:54] LABS: TSH w/ Reflex to FT4 1.29 uIU/mL (0.47-4.68)
[2024-09-24 10:58] LABS: Microalbumin Urine Random 2.3 mg/dL (0-1.6)
[2024-09-25 05:13] LABS: Apolipoprotein B 79 mg/dL (<90)
== END ==
PROVIDERS: PCP Family Medicine; Referring Provider Family Medicine; Visit Provider Family Medicine
DX: Z00.00 Encounter for general adult medical examination without abnormal findings (principal); E78.2 Mixed hyperlipidemia; Z12.5 Encounter for screening for malignant neoplasm of prostate; I10 Essential (primary) hypertension; K57.90 Diverticulosis of intestine, part unspecified, without perforation or abscess without bleeding
CPT/HCPCS: 36415; 80053; 80061; 82043; 82172; 82570; 84443; 85025; G0103